=== PATIENT | male | born 1955 | race African-American/Black ===

== ENCOUNTER 2023-10-11 07:39 | Emergency (ER) | payer OTHER ==
[~2023-10-11] VITALS: Ht 177.8 cm; Wt 81.0 kg
[2023-10-11 07:48] VITALS: TEMP 98.4; O2SAT 100
[2023-10-11 08:45] VITALS: BP 176/91; PULSE 79; RESP 20
[2023-10-11] MEDS ORDERED: ACETAMINOPHEN WITH CODEINE 300/30MG TABLET PO ONE (08:45)
[2023-10-11] MEDS ORDERED: SILVER SULFADIAZINE 1% CREAM 25GM TOP ONE (08:45)
[2023-10-11] MEDS ORDERED: CEPH500C2 MT (09:36)
[2023-10-11] MEDS ORDERED: IBUP-2029 MT (09:36)
[2023-10-11] MEDS ORDERED: T3 PO (09:36)
[2023-10-11] MEDS ORDERED: SILV50CR31 TP (09:38)
== END 2023-10-11 10:13 | disposition home or self-care (01) ==
LOC: EDBD 07:39 → ER 07:39
DX: T23.201A Burn of second degree of right hand, unspecified site, initial encounter (principal); I10 Essential (primary) hypertension; X12.XXXA Contact with other hot fluids, initial encounter; Y93.89 Activity, other specified; Y92.89 Other specified places as the place of occurrence of the external cause; Y99.8 Other external cause status
CPT/HCPCS: 16020; 99283